=== PATIENT | female | born 1970 | race Caucasian/White ===

== ENCOUNTER 2016-06-04 00:44 | Emergency (ER) | payer MEDICAID ==
[2015-01-04 11:09] VITALS: BMI 32.1
[~2016-06-04 00:44] MED LIST: LISINOPRIL-HCTZ1 T11 PO; VALIUM5 MG PO
== END 2016-06-04 01:30 | disposition home or self-care (01) ==
LOC: D.ER 00:44
DX: S93.402A Sprain of unspecified ligament of left ankle, initial encounter (principal); X58.XXXA Exposure to other specified factors, initial encounter; Y93.89 Activity, other specified; Y92.019 Unspecified place in single-family (private) house as the place of occurrence of the external cause; I10 Essential (primary) hypertension; K21.9 Gastro-esophageal reflux disease without esophagitis; J44.9 Chronic obstructive pulmonary disease, unspecified; M79.7 Fibromyalgia; F32.9 Major depressive disorder, single episode, unspecified

== ENCOUNTER 2016-08-29 19:54 | Emergency (ER) | payer MEDICAID ==
[2015-01-04 11:09] VITALS: BMI 32.1
[2016-08-29 21:28] LABS: HCG URINE NEGATIVE (NEGATIVE)
[2016-08-29 21:29] LABS: APPEARANCE HAZY (CLEAR); BILIRUBIN NEGATIVE (NEGATIVE); COLOR BROWN (YELLOW); GLUCOSE NEGATIVE (NEGATIVE); KETONE NEGATIVE (NEGATIVE); LEUKOCYTE ESTERASE TRACE (NEGATIVE); NITRITE NEGATIVE (NEGATIVE); PROTEIN 1+ mg/dL (NEGATIVE); SPECIFIC GRAVITY 1.025 (1.005-1.020); UROBILINOGEN NORMAL (NORMAL)
[2016-08-29 21:30] LABS: BACTERIA MODERATE /hpf (NONE SEEN); EPITHELIAL CELLS 0-5 /hpf (0-5); RED CELLS - URINE >50 /hpf (0-5); WHITE CELLS - URINE 0-5 /hpf (0-5); YEAST <1+ /hpf (NONE SEEN)
[2016-08-29 22:02] LABS: BASOPHILS 0.4 % (0.0-2.0); EOSINOPHILS 1.8 % (0-7); HEMATOCRIT 41.8 % (36.0-48.0); HEMOGLOBIN 14.1 g/dL (12-16); IMMATURE GRANULOCYTES 0.3 % (0-5); LYMPHOCYTES 28.4 % (15-50); MCH 30.9 pg (26.0-34.0); MCHC 33.7 g/dL (31.0-37.0); MCV 91.7 fL (80.0-100.0); MEAN PLATELET VOLUME 11.1 fL (7.4-10.4); MONOCYTES 7.3 % (2-11); NEUTROPHILS 61.8 % (40-80); PLATELET COUNT 264 10x3/uL (130-400); RBC 4.56 10x6/uL (4.00-5.40); RDW 12.6 % (11.5-14.5); WBC 11.3 10x3/uL (4.8-10.8)
[2016-08-29 22:10] LABS: ALBUMIN 3.7 g/dL (3.4-5.0); ALKALINE PHOSPHATASE 54 U/L (46-116); ALT (SGPT) 26 U/L (10-68); AMYLASE - SERUM 21 U/L (25-115); CALC OSMOLALITY 276 mosm/kg (275-300); CALCIUM 9.4 mg/dL (8.5-10.1); CARBON DIOXIDE 23.1 mmol/L (21.0-32.0); CHLORIDE - SERUM 103 mmol/L (98-107); CREATININE - SERUM 0.8 mg/dL (0.6-1.3); GLUCOSE 149 mg/dL (74-106); LIPASE 74 U/L (73-393); POTASSIUM - SERUM 3.6 mmol/L (3.5-5.1); PROTEIN - SERUM 7.2 g/dL (6.4-8.2); SODIUM 137 mmol/L (136-145); UREA NITROGEN 13 mg/dL (7-18); eGFR NON AFRICAN AMERICAN 82 mL/min (90-120)
== END 2016-08-29 22:54 | disposition home or self-care (01) ==
LOC: D.ER 19:54
PROVIDERS: Family Medicine
DX: N20.1 Calculus of ureter (principal); J44.9 Chronic obstructive pulmonary disease, unspecified; F32.9 Major depressive disorder, single episode, unspecified; K21.9 Gastro-esophageal reflux disease without esophagitis; M79.7 Fibromyalgia; I10 Essential (primary) hypertension

== ENCOUNTER → 2017-01-11 12:43 | Outpatient (CLI) | payer MEDICAID ==
[2015-01-04 11:09] VITALS: BMI 32.1
== END | disposition home or self-care (01) ==
LOC: D.RAD 12:43
DX: M25.511 Pain in right shoulder (principal)

== ENCOUNTER 2017-02-07 05:23 | Day surgery (SDC) | payer MEDICAID ==
[~2017-02-07] VITALS: Ht 175.3 cm; Wt 104.3 kg
[~2017-02-07 05:23] MED LIST changes: +LEXAPRO20 MG PO; +MOBIC7.5 MG PO; +PRINIVIL20 MG PO
[2017-02-07] MEDS ORDERED: VALIUM5 MG PO (06:56)
[2017-02-07] MEDS ORDERED: ULTRAM50 MG PO (06:56)
[2017-02-07 07:01] VITALS: BP 123/49; Ht 175.3 cm; Wt 104.3 kg
[2017-02-07] MEDS ORDERED: HYDROCODONE-APA1 TAB PO (09:10)
== END 2017-02-07 11:20 | disposition home or self-care (01) ==
LOC: D.OPS 05:23 → D.PAN 08:00 → D.OPS 11:20 → D.PAN 11:35 → D.OPS 14:30
DX: M75.101 Unspecified rotator cuff tear or rupture of right shoulder, not specified as traumatic (principal); M75.41 Impingement syndrome of right shoulder; M75.21 Bicipital tendinitis, right shoulder; M13.811 Other specified arthritis, right shoulder; I10 Essential (primary) hypertension; J45.909 Unspecified asthma, uncomplicated; Z01.812 Encounter for preprocedural laboratory examination

== ENCOUNTER 2017-03-06 12:06 | Inpatient (IN) | payer MEDICAID ==
[~2017-03-06 12:06] MED LIST changes: +HYDROCODONE-APA1 TAB PO; +ULTRAM50 MG PO
[2017-03-06] MEDS ORDERED: OMNICEF300 MG PO (12:35)
[2017-03-06] MEDS ORDERED: PROTONIX40 MG PO (12:36)
[2017-03-06 13:05] VITALS: BP 134/65; BMI 41.1
[2017-03-06 13:35] LABS: BASOPHILS 0.4 % (0-2); EOSINOPHILS 2.4 % (0-7); HEMATOCRIT 40.2 % (36.0-48.0); HEMOGLOBIN 13.3 g/dL (12-16); IMMATURE GRANULOCYTES 0.1 % (0-5); LYMPHOCYTES 36.8 % (15-50); MCH 31.1 pg (26.0-34.0); MCHC 33.1 g/dL (31.0-37.0); MCV 93.9 fL (80.0-100.0); MEAN PLATELET VOLUME 11.1 fL (7.4-10.4); MONOCYTES 7.5 % (2-11); NEUTROPHILS 52.8 % (40-80); PLATELET COUNT 254 10x3/uL (130-400); RBC 4.28 10x6/uL (4.00-5.40); RDW 12.5 % (11.5-14.5)
[2017-03-06 13:52] LABS: ALBUMIN 3.2 g/dL (3.4-5.0); ALKALINE PHOSPHATASE 60 U/L (46-116); ALT (SGPT) 18 U/L (10-68); BILIRUBIN - TOTAL 0.27 mg/dL (0.2-1.3); CALC OSMOLALITY 278 mosm/kg (275-300); CALCIUM 9.1 mg/dL (8.5-10.1); CHLORIDE - SERUM 106 mmol/L (98-107); CREATININE - SERUM 0.6 mg/dL (0.6-1.3); POTASSIUM - SERUM 3.8 mmol/L (3.5-5.1); PROTEIN - SERUM 6.6 g/dL (6.4-8.2); SODIUM 140 mmol/L (136-145); UREA NITROGEN 12 mg/dL (7-18); eGFR NON AFRICAN AMERICAN > 90 mL/min (90-120)
[2017-03-06 13:56] LABS: GLUCOSE 96 mg/dL (74-106)
[2017-03-06 17:46] VITALS: BP 111/60
[2017-03-06 20:00] VITALS: BP 124/71
--- NOTE | 2017-03-06 22:22 | NUR ---
REC'D LYING IN BED. ALERT AND ORIENTED X4. REPORTED PAIN 8/10. WILL ADMIN PAIN MEDS PRESCRIBED. NO DISTRESS NOTED. HAS A PRODUCTIVE COUGH. YELLOW/BROWN SPUTUM. INSTRUCTED TO CALL IF NEEDED ANYTHING, VERBALIZED UNDERSTANDING. BED LOW, LOCKED, CALL LIGHT IN REACH. WILL CONT TO MONITOR.
[2017-03-07] VITALS: BP 132/65
[2017-03-07 04:45] LABS: BASOPHILS 0.1 % (0-2); EOSINOPHILS 0 % (0-7); HEMATOCRIT 38.4 % (36.0-48.0); HEMOGLOBIN 12.9 g/dL (12-16); IMMATURE GRANULOCYTES 0.3 % (0-5); LYMPHOCYTES 15.3 % (15-50); MCH 30.9 pg (26.0-34.0); MCHC 33.6 g/dL (31.0-37.0); MCV 92.1 fL (80.0-100.0); MEAN PLATELET VOLUME 11.2 fL (7.4-10.4); MONOCYTES 1.8 % (2-11); NEUTROPHILS 82.5 % (40-80); PLATELET COUNT 250 10x3/uL (130-400); RBC 4.17 10x6/uL (4.00-5.40); RDW 12.3 % (11.5-14.5)
[2017-03-07 04:49] LABS: WBC 10.1 10x3/uL (4.8-10.8)
[2017-03-07 05:04] LABS: ALKALINE PHOSPHATASE 54 U/L (46-116); ALT (SGPT) 15 U/L (10-68); BILIRUBIN - TOTAL 0.17 mg/dL (0.2-1.3); CALC OSMOLALITY 285 mosm/kg (275-300); CALCIUM 9.2 mg/dL (8.5-10.1); CHLORIDE - SERUM 108 mmol/L (98-107); CREATININE - SERUM 0.7 mg/dL (0.6-1.3); GLUCOSE 171 mg/dL (74-106); POTASSIUM - SERUM 4.2 mmol/L (3.5-5.1); PROTEIN - SERUM 6.6 g/dL (6.4-8.2); SODIUM 141 mmol/L (136-145); UREA NITROGEN 15 mg/dL (7-18); eGFR NON AFRICAN AMERICAN > 90 mL/min (90-120)
--- NOTE | 2017-03-07 07:15 | NUR ---
REPORT RECIEVED, ASSUMED CARE OF PT. SITTING UP IN BED, NO NEEDS VOICED AT THIS TIME. R FOREARM IV INFUSING ORDERED, DRSG C/D/I. BED IN LOWEST POSITION, SIDE RAILS UP X 2, CALL LIGHT WITHIN REACH.
[2017-03-07 08:03] VITALS: BP 126/68
--- NOTE | 2017-03-07 08:18 | NUR ---
Patient Name: TREV SALAZAR Admission Status: Elective Accout number: [id number] Admission Date: 03-06-2017 : 1970 Admission Diagnosis: Attending: DIEUDONNE MEDRANO Current LOS: 1 Anticipated DC Date: 03-09-2017 Planned Disposition: Home [place] Insurance: [place] [employer] [facility] Discharge Planning Comments: CM MET WITH PATIENT REGARDING D/C NEEDS AND PLANS. PATIENT STATED SHE LIVES WITH HER SPOUSE (MARQUIS) AND HE OR FAMILY WILL DRIVE HER HOME AT DISCHARGE. PATIENT STATED THERE ARE 4 STEPS W/O RAILS TO ENTER HOME AND NO STAIRS INSIDE. PATIENT IS INDEPENDENT WITH HER CARE AND HAS A WALKER, AND NEBULIZER AT HOME. PATIENTS PCP IS DR. MEDRANO AND PHARMACY IS [facility]. PATIENT IS REFUSING HOME HEALTH. CM WILL CONTINUE TO FOLLOW PATIENT WITH D/C NEEDS AND PLANS. PCP DR. MITCHELL BAGLEY ON [facility]- [phone] MARQUIS (SPOUSE) [phone] Industrial Order Clerk: Jackie Alamo Is the patient Alert and Oriented? Yes 0 * How many steps to enter\exit or inside your home? 4 0 * PCP DR. MEDRANO 0 * Pharmacy [facility] [address] [facility] 0 * Preadmission Environment Home with Family 0 * ADLs Independent 0 * Equipment Nebulizer Walker 0 * List name and contact numbers for known caregivers / representatives who currently or will assist patient after discharge: MARQUIS (SPOUSE) [phone] 0 * Community resources currently utilized None 0 * Additional services required to return to the preadmission environment? Yes 0 * Can the patient safely return to the preadmission environment? Yes 0 * Has this patient been hospitalized within the prior 30 days at any hospital? No 0 Grand Total: 0
[2017-03-07 12:07] VITALS: BP 118/59
[2017-03-07 16:12] VITALS: BP 116/60
[2017-03-07 20:00] VITALS: BP 110/60
[2017-03-08 04:50] LABS: BASOPHILS 0 % (0-2); EOSINOPHILS 0 % (0-7); HEMATOCRIT 37.2 % (36.0-48.0); HEMOGLOBIN 12.5 g/dL (12-16); IMMATURE GRANULOCYTES 0.4 % (0-5); LYMPHOCYTES 10.5 % (15-50); MCH 31.6 pg (26.0-34.0); MCHC 33.6 g/dL (31.0-37.0); MEAN PLATELET VOLUME 11.3 fL (7.4-10.4); MONOCYTES 2.3 % (2-11); NEUTROPHILS 86.8 % (40-80); PLATELET COUNT 274 10x3/uL (130-400); RBC 3.95 10x6/uL (4.00-5.40); RDW 12.7 % (11.5-14.5)
[2017-03-08 04:51] LABS: MCV 94.2 fL (80.0-100.0); WBC 17.9 10x3/uL (4.8-10.8)
[2017-03-08 05:20] LABS: ALBUMIN 3.1 g/dL (3.4-5.0); ANION GAP 14.7 mmol/L (8-16); BILIRUBIN - TOTAL 0.1 mg/dL (0.2-1.3); CALCIUM 8.7 mg/dL (8.5-10.1); CARBON DIOXIDE 21.3 mmol/L (21.0-32.0); PROTEIN - SERUM 6.3 g/dL (6.4-8.2)
[2017-03-08 05:21] LABS: CREATININE - SERUM 0.9 mg/dL (0.6-1.3)
--- NOTE | 2017-03-08 06:47 | NUR ---
ASSESSED AT THE BEGINNING OF THE SHIFT. PT IS ALERT AND ORIENTED, ABLE TO VERBALIZE NEEDS. SHE IS NOT WEARING HER O2 AND IS DOING WELL WITH EASY RESPIRATIONS. SHE IS ABLE TO MOVE AD CONCHITA IN BED AND UP TO THE BATHROOM. MOST OF THE NIGHT SHE HAS BEEN UNABLE TO SLEEP. THE BED IS LOW, RAILS UP X'S 2 WITH THE CALL LIGHT AT HAND.
[2017-03-08] MEDS ORDERED: PREDNISONE10 MG PO (07:18)
[2017-03-08] MEDS ORDERED: BROVANA15 MCG/2 M INH (07:19)
[2017-03-08] MEDS ORDERED: SKELAXIN800 MG PO (07:20)
[2017-03-08] MEDS ORDERED: IPRAT-ALBUT 0.5-3 ML UPD ×2 (07:20→08:59)
[2017-03-08] MEDS ORDERED: NICODERM C1 PATCH .1 TRANSDERM (07:20)
--- NOTE | 2017-03-08 08:00 | NUR ---
REPORT RECEIEVED, ASSUMED CARE OF PT. RESTING, EASILY AROUSED. R FOREARM IV INFUSING ORDERED. BED IN LOWEST POSITION, SIDE RAILS UP X 2, CALL LIGHT WITHIN REACH.
[2017-03-08] MEDS ORDERED: SYMBICORT 16010.2 GM INH (08:59)
--- NOTE | 2017-03-08 09:39 | NUR ---
DISCHARGE INSTRUCTIONS GIVEN TO PT, VERBALIZED UNDERSTANDING AND SIGNED. R FOREARM IV D/C'D, BLEED CONTROL AND BANDAGE APPLIED.
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
--- NOTE | 2017-03-08 13:38 | NUR ---
LATE ENTRY: PATIENT IS DISCHARGING HOME TODAY / FAMILY DRIVING. REFUSED HOME HEALTH AND HAD NO OTHER NEEDS FOR DISCHARGE.
--- NOTE | 2017-03-22 10:35 | CN ---
PATIENT NAME:TREV DOMINGO MEDICAL RECORD: [id number] : 70 LOCATION:D.MS [id number] ADMIT DATE: 03/06/17 ACCOUNT: [id number] CONSULTING PHYSICIAN: CORNELIUS FOWLER MD REFERRING PHYSICIAN: TICO MEDRANO DO DATE OF CONSULTATION: 03/06/2017 CONSULT REQUESTING PHYSICIAN: Tico Medrano DO REASON FOR CONSULTATION: Acute exacerbation of COPD and acute cough. HISTORY OF PRESENT ILLNESS: Ms. Domingo is a 46-year-old female who is sick for the last 2 weeks. According to the patient, she is coughing. She is wheezing. She has shortness of breath. The coughing is spasmodic in nature. Cough with white yellowish color sputum production. She also hear herself wheezing. She took a course of antibiotic soon, but did not get any better. REVIEW OF SYSTEMS: CONSTITUTIONAL: No fever and chills. RESPIRATORY: As in history of present illness. HEENT: Some sinus congestion. CARDIOVASCULAR: Negative. GASTROINTESTINAL: Negative. GENITOURINARY: Negative. Other review of the systems is negative. PAST MEDICAL HISTORY: 1. COPD. 2. Anxiety, depression. 3. Hypertension. PAST SURGICAL HISTORY: 1. Cholecystectomy. 2. Hysterectomy. 3. Right shoulder arthroscopic surgery. ALLERGIES: SHE IS ALLERGIC TO ADHESIVE TAPES AND SULFA. PRESENT MEDICATIONS: On [employer] was reviewed. PERSONAL AND SOCIAL HISTORY: The patient still continue almost 1 pack per day since age 14-15. She is a nondrinker. FAMILY HISTORY: Noncontributory. PHYSICAL EXAMINATION: GENERAL: Now, the patient is lying in bed, she is not in acute distress. VITAL SIGNS: The blood pressure 136/65, pulse is 73, respirations 16, temperature 97.9, SPO2 is 97% on room air. HEENT: Conjunctivae pink, sclerae nonicteric. NECK: Supple, no JVD. CHEST: The chest excursion is minimal on both wheeze on forceful expiration. HEART: Rhythm regular, normal sound, no murmur. ABDOMEN: Soft, bowel sounds present. No hepatosplenomegaly. RECTAL: Deferred. CONSULT REPORT [id number] TREV DOMINGO EXTREMITIES: No cyanosis, no clubbing, no pedal edema. SKIN: Warm, normal turgor. CENTRAL NERVOUS SYSTEM: The patient is awake and alert. There are no obvious cranial nerve abnormality. The gait was not tested. CHEST RADIOGRAPH: There is hyperinflation. There are no acute infiltrate. LABORATORY DATA: CBC: WBC 7000, hemoglobin 13.3, hematocrit 40.2, and platelet count 254. Chemistry: Sodium is 140, potassium 3.8, BUN is 12, creatinine 0.6. IMPRESSION: 1. Acute exacerbation of chronic obstructive pulmonary disease. 2. Tracheobronchitis. 3. Acute cough. 4. Tobacco dependence syndrome. RECOMMENDATION: 1. Continue Rocephin IV. 2. Albuterol ipratropium nebulizer. 3. Brovana, budesonide nebulizer. 4. Tussionex cough syrup 5 cc b.i.d. 5. Mucinex DM 2 tablets b.i.d. 5. Check alpha 1 level. The patient was counseled to quit smoking. Continue nicotine patch. Dr. Medrano, thank you for involving me in the care of Ms. Domingo. TRANSINT:[id number] Voice Confirmation ID: [id number] DOCUMENT ID: [id number] CORNELIUS FOWLER MD at 1035 CC: TICO MEDRANO DO [id number] DICTATION DATE: 03/06/17 1553 MER[facility] SYSTEM DIRECTOR: 03/06/171938 DIS IN 03/08/17 [facility] [address] [place] [address]
[2017-06-28] MEDS ORDERED: DETROL LA4 MG PO (08:11)
[2017-06-28] MEDS ORDERED: ADVAIR 100/501 DISK INH (08:12)
== END 2017-03-08 10:30 | disposition home or self-care (01) | DRG 192 ==
LOC: D.MS 12:06
PROVIDERS: ADMIT Family Medicine
DX: J44.1 Chronic obstructive pulmonary disease with (acute) exacerbation (principal); R05 Cough; F17.200 Nicotine dependence, unspecified, uncomplicated; R91.1 Solitary pulmonary nodule

== ENCOUNTER → 2017-05-24 07:21 | Outpatient (CLI) | payer MEDICAID ==
[~2017-05-24 07:21] MED LIST changes: +ADVAIR 100/501 DISK INH; +BROVANA15 MCG/2 M INH; +DETROL LA4 MG PO; +IPRAT-ALBUT 0.5-3 ML UPD; +NICODERM C1 PATCH .1 TRANSDERM; +OMNICEF300 MG PO; +PREDNISONE10 MG PO; +PROTONIX40 MG PO; +SKELAXIN800 MG PO; +SYMBICORT 16010.2 GM INH
== END | disposition home or self-care (01) ==
LOC: D.RAD 07:21 → D.MRI 09:00 → D.RAD 10:30
DX: M25.511 Pain in right shoulder (principal)

== ENCOUNTER 2017-07-01 05:15 | Day surgery (SDC) | payer MEDICAID ==
[2017-06-28 08:51] LABS: BASOPHILS 0.7 % (0-2); EOSINOPHILS 3.5 % (0-7); HEMATOCRIT 38.8 % (36.0-48.0); HEMOGLOBIN 13.2 g/dL (12-16); IMMATURE GRANULOCYTES 0.1 % (0-5); LYMPHOCYTES 36.7 % (15-50); MCH 31.2 pg (26.0-34.0); MCV 91.7 fL (80.0-100.0); MEAN PLATELET VOLUME 10.7 fL (7.4-10.4); MONOCYTES 7.8 % (2-11); NEUTROPHILS 51.2 % (40-80); PLATELET COUNT 243 10x3/uL (130-400); RBC 4.23 10x6/uL (4.00-5.40); RDW 12.9 % (11.5-14.5); WBC 7.7 10x3/uL (4.8-10.8)
[2017-06-28 09:07] LABS: APTT 30.1 SECONDS (22.8-39.4); INR 0.96 (0.85-1.17); PROTIME 12.4 SECONDS (11.6-15.0)
[~2017-07-01] VITALS: Ht 172.7 cm; Wt 106.6 kg
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
[2017-07-01 07:18] VITALS: BP 124/70; Ht 172.7 cm; Wt 106.6 kg
== END 2017-07-01 12:05 | disposition home or self-care (01) ==
LOC: D.OPS 05:15 → D.PAN 14:15 → D.OPS 14:15
PROVIDERS: Anesthesiology
DX: M75.101 Unspecified rotator cuff tear or rupture of right shoulder, not specified as traumatic (principal); F17.200 Nicotine dependence, unspecified, uncomplicated; I10 Essential (primary) hypertension; J44.9 Chronic obstructive pulmonary disease, unspecified; Z01.812 Encounter for preprocedural laboratory examination

== ENCOUNTER → 2019-07-24 09:38 | Outpatient (CLI) | payer OTHER ==
[2017-07-01 07:18] VITALS: BMI 35.8
== END | disposition home or self-care (01) ==
LOC: D.MRI 09:38
PROVIDERS: ATTEND Clinical Nurse Specialist Family Health
DX: M25.511 Pain in right shoulder (principal)

== ENCOUNTER → 2019-07-29 22:33 | Outpatient (CLI) | payer OTHER ==
[2017-07-01 07:18] VITALS: BMI 35.8
== END | disposition home or self-care (01) ==
LOC: D.LABREF 22:33
PROVIDERS: ATTEND Orthopaedic Surgery
DX: M19.011 Primary osteoarthritis, right shoulder (principal)

== ENCOUNTER 2019-08-03 15:38 | Inpatient (IN) | payer OTHER ==
[~2019-08-03] VITALS: Ht 175.3 cm; Wt 104.5 kg
[2019-09-17] MEDS ORDERED: ULTRAM50 MG PO (09:24)
[2019-09-17 10:37] LABS: BASOPHILS 0.5 % (0-2); EOSINOPHILS 2.2 % (0-7); HEMATOCRIT 42.2 % (36.0-48.0); HEMOGLOBIN 13.7 g/dL (12-16); IMMATURE GRANULOCYTES 0.1 % (0-5); MCH 30.4 pg (26.0-34.0); MCHC 32.5 g/dL (31.0-37.0); MCV 93.8 fL (80.0-100.0); MEAN PLATELET VOLUME 10.7 fL (7.4-10.4); MONOCYTES 7.6 % (2-11); NEUTROPHILS 59.6 % (40-80); PLATELET COUNT 307 10x3/uL (130-400); WBC 8.3 10x3/uL (4.8-10.8)
[2019-09-17 10:54] LABS: CALC OSMOLALITY 279 mosm/kg (275-300); CALCIUM 9.2 mg/dL (8.5-10.1); CARBON DIOXIDE 28.4 mmol/L (21.0-32.0); CHLORIDE - SERUM 106 mmol/L (98-107); CREATININE - SERUM 0.6 mg/dL (0.6-1.3); POTASSIUM - SERUM 3.9 mmol/L (3.5-5.1); SODIUM 141 mmol/L (136-145); UREA NITROGEN 8 mg/dL (7-18); eGFR NON AFRICAN AMERICAN > 90 mL/min (90-120)
[2019-09-17 10:55] LABS: GLUCOSE 110 mg/dL (74-106)
[2019-09-17 10:56] LABS: APTT 33.8 SECONDS (22.8-39.4); INR 0.93 (0.85-1.17); PROTIME 12.4 SECONDS (11.6-15.0)
[2019-09-17 11:23] LABS: BILIRUBIN NEGATIVE (NEGATIVE); GLUCOSE NEGATIVE (NEGATIVE); KETONE NEGATIVE (NEGATIVE); NITRITE NEGATIVE (NEGATIVE); SPECIFIC GRAVITY 1.025 (1.005-1.020); UROBILINOGEN NORMAL (NORMAL)
[2019-09-17 11:24] LABS: BACTERIA MODERATE /hpf (NEGATIVE); RED CELLS - URINE 0-5 /hpf (0-5); WHITE CELLS - URINE 0-5 /hpf (NEGATIVE)
[2019-09-21] VITALS (13 sets, daily range): BP systolic 101–145; BP diastolic 46–80; Ht 175.3 cm; Wt 104.5 kg
--- NOTE | 2019-09-21 06:52 | NUR ---
2 IV ATTEMPTS. 20 GAUGE IV CATH IN LEFT HAND
--- NOTE | 2019-09-21 07:07 | NUR ---
ENGINEER STATION MAINLINE WAS CALLED SEVERAL TIMES TO INFORM OF POSITIVE SUICIDE RISK SCREEN. CALLED DIRECTLY TO BEHAVIORAL HEALTH NURSE TO INFORM OF PT'S STATUS. NURSE DID NOT MAKE IT TO OPS IN TIME TO EVALUATE.
--- NOTE | 2019-09-21 08:44 | NUR ---
PLASMA BLADE SET TO 6/8 GROUNDING PAD LEFT FLANK LOT# [id number] 02/09/2021 RIGHT ARM CLEANSED WITH HIBECLENS AND ALCOHOL FROM NECK TO FINGERS CIRCUMFERENTIALLY PRIOR TO PREPPING WITH CHLORAPREP X2 TRAFFIC KEPT TO MINIMUM
--- NOTE | 2019-09-21 10:11 | NUR ---
RECEIVED TO ROOM 1208 VIA BED FROM PACU. A/O X3. C/O BACK PAIN LEVEL 10. REPOSITIONED IN BED FOR COMFORT. REPORTS PAIN EASED. SKIN IS INTACT WITHOUT REDNESS EXCEPT INCISION TO RIGHT SHOULDER WHICH HAS A DRY INTACT DRESSING IN PLACE ALSO A SLING IN PLACE TO SAME. VSS. WILL MONITOR.
--- NOTE | 2019-09-21 11:58 | NUR ---
RESTING QUIETLY WITH EYES CLOSED. NO NEEDS NOTED.
--- NOTE | 2019-09-21 13:56 | NUR ---
UP TO BR. VOIDED CLEAR YELLOW URINE WIHTOUT DIFFICULTY. DENIES NEEDS. SITTING UP ON SIDE OF BED EATING LUNCH.
--- NOTE | 2019-09-21 18:05 | NUR ---
WAS UP TO BR WITH ONE PERSON MIN ASSIST. VOIDED WITHOUT DIFFCULTY. ATE ALL OF SUPPER. DENIES NEEDS. NO CHANGES NOTED.
--- NOTE | 2019-09-21 19:13 | NUR ---
PATIENT UP TO RR AND VOIDED. VSS. PATIENT DENIES OTHER NEEDS AT THIS TIME. BED IN LOWEST POSITION AND CALL LIGHT WITHIN REACH. ENCOURAGED THE PATIENT TO CALL IF SHE HAS NEEDS. WILL CONTINUE TO MONITOR.
[2019-09-22 03:56] VITALS: BP 113/70
[2019-09-22 07:05] LABS: HEMATOCRIT 36.4 % (36.0-48.0); HEMOGLOBIN 11.3 g/dL (12-16); MCH 29.4 pg (26.0-34.0); MCV 94.8 fL (80.0-100.0); RBC 3.84 10x6/uL (4.00-5.40); RDW 14.3 % (11.5-14.5); WBC 12.2 10x3/uL (4.8-10.8)
[2019-09-22 07:37] VITALS: BP 117/65
--- NOTE | 2019-09-22 08:22 | NUR ---
AWAKE AND ALERT. ORIENTED X3. VERY ANXIOUS THIS AM. ERLIN HICKEY CERTIFIED COATINGS INSPECTOR HERE AND ORDERED A XANAX DOSE WHICH HAS BEEN GIVEN . WILL MONITOR. LUNGS HAVE FAINT WHEEZES THROUGHOUT. ENCOURAGED TO CONTINUE WITH IS INSTRUCTED. SKIN IS INTACT WITHOUT REDNESS EXCEPT INCISION TO RIGHT SHOULDER WHICH HAS A DRY INTACT DRESSING IN PLACE. IV TO LEFT HAND IS PATENT WITHOUT REDNESS AT INSERTION SITE. BREAKFAST SERVED IN ROOM. ATE ALL OF MEAL. DENIES NEEDS.
[2019-09-22] MEDS ORDERED: PERCOCET 10-321 EAC1 PO (08:48)
--- NOTE | 2019-09-22 10:12 | MORECARE ---
CASE MANAGEMENT DISCHARGE SUMMARY PATIENT: TREV SALAZAR UNIT: [id number] ADM DATE: 09/21/19 AGE: 48 : 70 SEX: F ROOM/BED: D.1208 AUTHOR: LONNIE ROMO PHYSICIAN: REFERRING PHYSICIAN: UNRULY PARADA MD DATE OF SERVICE: 09/22/19 Discharge Plan Patient Name: TREV SALAZAR Facility: [facility]:[place] : 1970 Planned Disposition: Home or Self Care Anticipated Discharge Date: 09/22/19 Discharge Date: Expected LOS: 1 Initial Reviewer: [email or web address] Initial Review Date: 09/21/2019 Generated: 09/22/19 11:12 am Comments DCP- Discharge Planning Updated by [email or web address]: Carole Luevano on 09/22/19 9:[address] CM met with patient to discuss initial discharge planning. Patient is in agreement to proceed with the assessment with present. Patient reports that she lives at home independently with her spouse, Navid. Patient is alert/oriented. Stairs/steps: 6-8, w/o rails. PCP: Dr. Reynoso. Pharmacy: [facility]. Patient states they have been able to obtain all of their prescribed medications. HHS: No. DME: Home, portable O2. Patient gives permission to speak with family members/care givers. Emergency contact: Mau Castillo (son) [phone]. Patient is Independent with all ADL's, medication management SALES ANALYST. CM discussed the availability of HH, Rehab, DME services. Patient denies the need for additional services at this time and feels safe returning to previous environment. Patient states that her daughter, Bambi Han #[phone], will assist with care/dressing changes at home. Patient denies being hospitalized within the past 30 days. Patient denies the use of community resources SALES ANALYST. Transportation at time of discharge: Son, Mau Castillo. Patient Name: TREV SALAZAR Page [id number] at 1012 All edits/amendments must be made on the electronic document DICTATION DATE: 09/22/191011 AUTH SPECIALIST: DM 09/22/191011 RPT#: [id number] DC DATE: STATUS: ADM IN [facility] [address] [place] [address] END OF REPORT
--- NOTE | 2019-09-22 10:19 | MORECARE ---
CASE MANAGEMENT DISCHARGE SUMMARY PATIENT: TREV SALAZAR UNIT: [id number] ADM DATE: 09/21/19 AGE: 48 : 70 SEX: F ROOM/BED: D.1208 AUTHOR: CLARISSA,DOC PHYSICIAN: REFERRING PHYSICIAN: UNRULY PARADA MD DATE OF SERVICE: 09/22/19 Discharge Plan Patient Name: TREV SALAZAR Facility: [facility]:[place] : 1970 Planned Disposition: Home or Self Care Anticipated Discharge Date: 09/22/19 Discharge Date: Expected LOS: 1 Initial Reviewer: [email or web address] Initial Review Date: 09/21/2019 Generated: 09/22/19 11:19 am Comments DCP- Discharge Planning Updated by [email or web address]: Carole Luevano on 09/22/19 9:[address] CM met with patient to discuss initial discharge planning. Patient is in agreement to proceed with the assessment with present. Patient reports that she lives at home independently with her spouse, Navid. Patient is alert/oriented. Stairs/steps: 6-8, w/o rails. PCP: Dr. Reynoso. Pharmacy: [facility]. Patient states they have been able to obtain all of their prescribed medications. HHS: No. DME: Home, portable O2. Patient gives permission to speak with family members/care givers. Emergency contact: Mau Castillo (son) [phone]. Patient is Independent with all ADL's, medication management HEEL SLUGGER. CM discussed the availability of HH, Rehab, DME services. Patient denies the need for additional services at this time and feels safe returning to previous environment. Patient states that her daughter, Bambi Han #[phone], will assist with care/dressing changes at home. Patient denies being hospitalized within the past 30 days. Patient denies the use of community resources HEEL SLUGGER. Transportation at time of discharge: Son, Mau Castillo. DCPIA - Discharge Planning Initial Assessment Updated by [email or web address]: Carole Luevano on 09/22/19 10:12 am * Is the patient Alert and Oriented? Yes * How many steps to enter\exit or inside your home? 6-8 no carey * PCP Dr. Reynoso * Pharmacy [facility], * Preadmission Environment Home with Family * ADLs Independent * Equipment Oxygen * Other Equipment Protable O2 * List name and contact numbers for known caregivers / representatives who currently or will assist patient after discharge: Mau Castillo son) [phone] Bambi Han (dtr) [phone] * Verbal permission to speak to the caregivers and representatives has been obtained from the patient. N/A * Community resources currently utilized None * Additional services required to return to the preadmission environment? No * Can the patient safely return to the preadmission environment? Yes * Has this patient been hospitalized within the prior 30 days at any hospital? No Last DP export: 09/22/19 9:12 am Patient Name: TREV SALAZAR Page [id number] at 1019 All edits/amendments must be made on the electronic document DICTATION DATE: 09/22/19 1019 DAIRY TRUCK DRIVER: NHUNG 09/22/19 1019 RPT#: [id number] DC DATE: STATUS: ADM IN [facility] [address] [place] [address] END OF REPORT
--- NOTE | 2019-09-22 10:27 | NUR ---
DRESSING CHANGED TO RIGHT SHOULDER USED MEPELEX AG. INCISION IS CLEAN DRY AND WELL APPROXIMATED WITH CLIPS INTACT.
--- NOTE | 2019-09-22 11:46 | NUR ---
DISCHARGED TO HOME AMBULATORY WITH FRIEND. DISCHARGE INSTRUCTIONS GIVEN BOTH VERBALLY AND WRITTEN. ALL QUESTIONS ANSWERED. PATIENT VERBALIZED UNDERSTANDING OF SAME. NEEDED PRESCRIPTIONS ESCRIBED TO PHARMACY OF CHOICE. SL TO LEFT HAND D/C WITH CATHETER INTACT. ALL BELONGINGS WITH PATIENT.
--- NOTE | 2019-09-22 13:12 | MORECARE ---
CASE MANAGEMENT DISCHARGE SUMMARY PATIENT: TREV SALAZAR UNIT: [id number] ADM DATE: 09/21/19 AGE: 48 : 70 SEX: F ROOM/BED: D.1208 AUTHOR: CLARISSA,DOC PHYSICIAN: REFERRING PHYSICIAN: UNRULY PARADA MD DATE OF SERVICE: 09/22/19 Discharge Plan Patient Name: TREV SALAZAR Facility: [facility]:[place] : 1970 Planned Disposition: Home or Self Care Anticipated Discharge Date: 09/22/19 Discharge Date: 09/22/2019 Expected LOS: 1 Initial Reviewer: [email or web address] Initial Review Date: 09/21/2019 Generated: 09/22/19 2:11 pm Comments DCP- Discharge Planning Updated by [email or web address]: Carole Luevano on 09/22/19 9:[address] CM met with patient to discuss initial discharge planning. Patient is in agreement to proceed with the assessment with present. Patient reports that she lives at home independently with her spouse, Navid. Patient is alert/oriented. Stairs/steps: 6-8, w/o rails. PCP: Dr. Reynoso. Pharmacy: [facility]. Patient states they have been able to obtain all of their prescribed medications. HHS: No. DME: Home, portable O2. Patient gives permission to speak with family members/care givers. Emergency contact: Mau Castillo (son) [phone]. Patient is Independent with all ADL's, medication management SKEIN DYER. CM discussed the availability of HH, Rehab, DME services. Patient denies the need for additional services at this time and feels safe returning to previous environment. Patient states that her daughter, Bambi Han #[phone], will assist with care/dressing changes at home. Patient denies being hospitalized within the past 30 days. Patient denies the use of community resources SKEIN DYER. Transportation at time of discharge: Son, Mau Castillo. DCPIA - Discharge Planning Initial Assessment Updated by [email or web address]: Carole Luevano on 09/22/19 10:12 am * Is the patient Alert and Oriented? Yes * How many steps to enter\exit or inside your home? 6-8 no carey * PCP Dr. Reynoso * Pharmacy [facility] * Preadmission Environment Home with Family * ADLs Independent * Equipment Oxygen * Other Equipment Protable O2 * List name and contact numbers for known caregivers / representatives who currently or will assist patient after discharge: Mau Castillo son) [phone] Bambi Han (dtr) [phone] * Verbal permission to speak to the caregivers and representatives has been obtained from the patient. N/A * Community resources currently utilized None * Additional services required to return to the preadmission environment? No * Can the patient safely return to the preadmission environment? Yes * Has this patient been hospitalized within the prior 30 days at any hospital? No Last DP export: 09/22/19 9:19 am Patient Name: TREV SALAZAR Page [phone] at 1312 All edits/amendments must be made on the electronic document DICTATION DATE: 09/22/19 1311 PIANO MAKER: NHUNG 09/22/19 1311 RPT#: [id number] DC DATE:09/22/19 STATUS: DIS IN [facility] [address] [place] [address] END OF REPORT
== END 2019-09-22 11:48 | disposition home or self-care (01) | DRG 483 ==
LOC: D.SDCHOLD 09-21 05:56 → D.M3 09-21 05:56 → D.SDCHOLD 09-21 07:30 → D.M3 09-21 09:46 → D.SDCHOLD 09-21 10:20 → D.M3 09-22 11:48
PROVIDERS: ADMIT Orthopaedic Surgery; ATTEND Orthopaedic Surgery
PROC: 0RRJ0JZ Replacement of Right Shoulder Joint with Synthetic Substitute, Open Approach (ICD-10-PCS; principal; 2019-09-21 07:30)
DX: M19.011 Primary osteoarthritis, right shoulder (principal)